=== PATIENT | female | born 1980 | race Caucasian/White ===

== ENCOUNTER 2017-10-02 14:13 | Emergency (ER) | payer SELFPAY ==
[2017-10-02] MEDS ORDERED: TETANUS & DIPHTHERIA TOX,ADULT 0.5 ML VIAL ONE (15:42)
--- NOTE | 2017-10-02 16:06 | RAD REPORT ---
EXAM DESCRIPTION: RAD - Ankle Left 3 View - 10/02/2017 3:53 pm CLINICAL HISTORY: Ankle pain and swelling, lateral pain. COMPARISON: None. FINDINGS: No fracture or dislocation. Soft tissue swelling is seen along the lateral aspect of the f oot. Small plantar calcaneal spur.
[2017-10-02] MEDS ORDERED: Ringers Lactate 1,000 ML IV ONE (16:24)
--- NOTE | 2017-10-02 16:59 | ER ---
Nurse's Notes [facility] Name: Prisca Urias Age: 37 yrs Sex: Female : 1980 Arrival Date: 10/02/2017 Time: 14:19 Bed 26 Private MD: None, None Diagnosis: Cellulitis of left lower limb-Left Ankle Presentation: 10/02 14:30 Presenting complaint: Patient states: Left ankle pain, redness, and swelling after hb hitting ankle on rock while swimming [place] the [place] 1 week ago. Transition of care: patient was not received from another setting of care. Onset of symptoms is unknown. Risk Assessment: Do you want to hurt yourself or someone else? Patient reports no desire to harm self or others. Care prior to arrival: None. 14:30 Method Of Arrival: Ambulatory 14:30 Acuity: KEELEY 3 hb 15:31 Initial Sepsis Screen: Does the patient meet any 2 criteria? No. Patient's initial rk2 sepsis screen is negative. Does the patient have a suspected source of infection? No. Patient's initial sepsis screen is negative. Triage Assessment: 15:28 General: Appears in no apparent distress. well groomed, well developed, well nourished, rk2 Behavior is calm, cooperative. Pain: Complains of pain in left ankle. Neuro: Level of Consciousness is alert, obeys commands, Oriented to person, place, time, situation. Respiratory: No deficits noted. Airway is patent Respiratory effort is even, unlabored, Respiratory pattern is regular, symmetrical. Derm: Skin is pink, warm \T\ dry. Injury Description: Mild redness noted to left ankle with scabbed over wound, no obvious drainage from wound, pt. reports no drainage. 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 - Social history:: Smoking status: Patient uses tobacco products, smokes one-half pack cigarettes per day. - Ebola Screening: : No symptoms or risks identified at this time. Screenin:27 Abuse screen: Denies threats or abuse. Nutritional screening: No deficits noted. rk2 Tuberculosis screening: No symptoms or risk factors identified. Fall Risk None identified. Vital Signs: 14:35 BP 149 / 90; Pulse 84; Resp 16; Temp 98.4; Pulse Ox 100% on R/A; Weight 79.38 kg; hb Height 5 ft. 3 in. (160.02 cm); Pain 4/10; 17:06 BP 156 / 90; Pulse 88; Resp 17; Pulse Ox 99% on R/A; rk2 14:35 Body Mass Index 31.00 (79.38 kg, 160.02 cm) hb ED Course: 14:19 Patient arrived in ED. mr 14:19 None, None is Private Physician. mr 14:35 Triage completed. hb 14:35 Arm band placed on right wrist. 14:58 Lio Burnett PA is PHCP. cp 14:58 Lio García MD is Attending Physician. cp 15:09 Mariya Alvarado RN is Primary Nurse. rk2 15:27 Patient has correct armband on for positive identification. Bed in low position. Call rk2 light in reach. 15:51 X-ray completed. Portable x-ray completed in exam room. Patient tolerated procedure la2 well. 15:52 XRAY Ankle LEFT 3 view In Process Unspecified. EDMS 17:07 No provider procedures requiring assistance completed. Patient did not have IV access rk2 during this emergency room visit. 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 Exp: rk2 12/14/2019. Lot #: [id number]. } Route: IM; Site: left deltoid; 16:14 Follow up: Response: No adverse reaction rk2 Outcome: 16:58 Discharge ordered by . cp 17:07 Discharged to home ambulatory. rk2 17:07 Condition: good 17:07 Discharge instructions given to patient, Prescriptions given X 2. 17:07 Patient left the ED. rk2 Signatures: Dispatcher [employer] EDNM Promise Millard mr Lio Burnett PA PA cp Stacie Jeffries, RN RN Sabine Lewis la2 Mariya Alvarado RN RN rk2
--- NOTE | 2017-10-02 16:59 | EDPHYS ---
Physician Documentation [facility] Name: Prisca Urias Age: 37 yrs Sex: Female : 1980 Arrival Date: 10/02/2017 Time: 14:19 Bed 26 Private MD: None, None ED Physician Lio García HPI: 10/02 15:38 This 37 yrs old Female presents to ER via Ambulatory with complaints of Ankle cp Swelling. 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 - Social history:: Smoking status: Patient uses tobacco products, smokes one-half pack cigarettes per day. - Ebola Screening: : No symptoms or risks identified at this time. ROS: 15:45 Constitutional: Negative for body aches, chills, fever, poor PO intake. cp 15:45 Eyes: Negative for injury, pain, redness, and discharge. cp 15:45 Cardiovascular: Negative for chest pain, palpitations. 15:45 Respiratory: Negative for cough, shortness of breath, wheezing. 15:45 Abdomen/GI: Negative for abdominal pain, nausea, vomiting, and diarrhea. 15:45 Back: Negative for pain at rest, pain with movement. 15:45 MS/extremity: Positive for erythema, pain, swelling, tenderness, warmth, of the left cp lateral ankle, Negative for decreased range of motion, deformity, paresthesias. 15:45 All other systems are negative. cp Exam: 15:50 Constitutional: The patient appears in no acute distress, alert, awake, well developed, cp well nourished. 15:50 Head/Face: Normocephalic, atraumatic. cp 15:50 Eyes: Periorbital structures: appear normal, Conjunctiva: normal, no exudate, no injection, Lids and lashes: appear normal, bilaterally. 15:50 ENT: External ear(s): are unremarkable, Nose: is normal, Mouth: is normal, Posterior pharynx: is normal, airway is patent, no erythema, no exudate. 15:50 Chest/axilla: Inspection: normal. 15:50 Cardiovascular: Rate: normal, Rhythm: regular. 15:50 Respiratory: the patient does not display signs of respiratory distress, Respirations: normal, no use of accessory muscles, no retractions, no splinting, no tachypnea. 15:50 Abdomen/GI: Exam negative for discomfort, distension, guarding, Inspection: abdomen appears normal. 15:50 Skin: cellulitis, that is mild, well demarcated, left lateral ankle. Vital Signs: 14:35 BP 149 / 90; Pulse 84; Resp 16; Temp 98.4; Pulse Ox 100% on R/A; Weight 79.38 kg; hb Height 5 ft. 3 in. (160.02 cm); Pain 4/10; 17:06 BP 156 / 90; Pulse 88; Resp 17; Pulse Ox 99% on R/A; rk2 14:35 Body Mass Index 31.00 (79.38 kg, 160.02 cm) hb MDM: 14:58 Patient medically screened. cp 16:00 Differential diagnosis: foreign body, cellulitis, abscess, fracture. cp 16:54 Data reviewed: vital signs, nurses notes, radiologic studies, plain films. Test cp interpretation: by ED physician or midlevel provider: plain radiologic studies. 10/02 15:38 Order name: XRAY Ankle LEFT 3 view; Complete Time: 16:28 cp 10/02 16:28 Interpretation: Report reviewed. 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 Exp: rk2 12/14/2019. Lot #: [id number]. } Route: IM; Site: left deltoid; 16:14 Follow up: Response: No adverse reaction rk2 Disposition: 10/02/17 16:58 Discharged to Home. Impression: Cellulitis of left lower limb - Left Ankle. - Condition is Stable. - Discharge Instructions: Cellulitis. - Prescriptions for Ibuprofen 800 mg Oral Tablet - take 1 tablet by ORAL route every 8 hours As needed take with food; 30 tablet. Bactrim DS 800- 160 mg Oral Tablet - take 1 tablet by ORAL route every 12 hours for 10 days; 20 tablet. - Medication Reconciliation Form, Thank You Letter, Antibiotic Education, Prescription Opioid Use form. - Follow up: Private Physician; When: 2 - 3 days; Reason: Wound Recheck. - Problem is new. - Symptoms are unchanged. Addendum: 10/04/2017 09:01 Co-signature as Attending Physician, Lio García MD I agree with the assessment and c berrios plan of care. Signatures: Dispatcher [employer] EDCO Lio García MD MD cha Page, Corey, PA PA cp Stacie Jeffries, RN RN Mariya Alvarado RN RN rk2 Corrections: (The following items were deleted from the chart) 10/02 17:07 16:58 10/02/2017 16:58 Discharged to Home. Impression: Cellulitis of left lower limb - rk2 Left Ankle. Condition is Stable. Forms are Medication Reconciliation Form, Thank You Letter, Antibiotic Education, Prescription Opioid Use. Follow up: Private Physician; When: 2 - 3 days; Reason: Wound Recheck. Problem is new. Symptoms are unchanged. cp
== END 2017-10-02 17:07 | disposition home or self-care (01) ==
LOC: ER 14:13
DX: L03.116 Cellulitis of left lower limb (principal); F17.210 Nicotine dependence, cigarettes, uncomplicated; Z23 Encounter for immunization
CPT/HCPCS: 90714; 99283